=== PATIENT | male | born 1980 | race Caucasian/White ===

== ENCOUNTER 2017-02-08 22:57 | Emergency (ER) | payer BC ==
[~2017-02-08] VITALS: Ht 185.4 cm; Wt 81.6 kg
[2017-02-08 23:00] VITALS: BP 147/85
--- NOTE | 2017-02-08 23:00 | NUR ---
36 YO MALE BB SELF. PT IS ALERT X 3, STATES HE DIVED INTO A POOL AND HIT HIS HEAD. PT DENIES KO, /N/V OR ANY OTHER MEDICAL COMPLAINTS. PT ADMITS TO ETOH DRINKING. PT AMBULATED TO ER BED WITH STEADY GAIT. PT GOWNED, PLACED ON FRONT END ALIGNMENT SPECIALIST. WILL CONTIUE TO MONITOR
[2017-02-08] MEDS ORDERED: BUPIVACAINE 0.5 % PF 150 MG/30 ML VIAL ONE (23:12)
[2017-02-08] MEDS ORDERED: BUPIVACAINE 0.5 % PF 150 MG/30 ML VIAL IJ ONE (23:30)
--- NOTE | 2017-02-08 23:30 | NUR ---
MD NETTLES AT BED SIDE FOR EVAL
--- NOTE | 2017-02-09 | NUR ---
PT REFUSED CT SCAN. NOTIFIED
--- NOTE | 2017-02-09 00:06 | NUR ---
MD NETTLES AT BED SIDE FOR SUTURE
--- NOTE | 2017-02-09 00:57 | NUR ---
PT RESTING IN ER BED, NAD NOTED.
== END 2017-02-09 01:38 | disposition home or self-care (01) ==
LOC: ER 22:57
DX: S09.90XA Unspecified injury of head, initial encounter (principal); S01.81XA Laceration without foreign body of other part of head, initial encounter; R79.89 Other specified abnormal findings of blood chemistry; F10.129 Alcohol abuse with intoxication, unspecified; I10 Essential (primary) hypertension; W22.8XXA Striking against or struck by other objects, initial encounter; Y93.89 Activity, other specified; Y92.89 Other specified places as the place of occurrence of the external cause; Y99.9 Unspecified external cause status
CPT/HCPCS: 82962-TC; A4606; A6402; A6403; J3490; Z7610